=== PATIENT | female | born 1990 | race Caucasian/White ===

== ENCOUNTER 2017-11-20 12:01 | Emergency (ER) | payer SELFPAY ==
--- NOTE | 2017-11-20 13:09 | ER ---
Nurse's Notes [facility] Name: Terry Ruiz Age: 27 yrs Sex: Female : 1990 Arrival Date: 11/20/2017 Time: 12:04 Bed Waiting Private MD: Diagnosis: Presentation: 11/20 12:10 Presenting complaint: Patient states: " I have a tooth infection and I can't get into ph the dentist until December and they won't see me at urgent care." Reports pain in R upper jaw, slight swelling noted, also c/o nausea, denies fever, V/D. Transition of care: patient was not received from another setting of care. Onset of symptoms was November 20, 2017. Initial Sepsis Screen: Does the patient meet any 2 criteria? No. Patient's initial sepsis screen is negative. Does the patient have a suspected source of infection? No. Patient's initial sepsis screen is negative. Care prior to arrival: None. 12:10 Method Of Arrival: Ambulatory ph 12:10 Acuity: IZZY 4 ph [facility]ANQUET SERVER ON CALL: 12:11 LMP N/A - Recent ph Historical: - Allergies: 12:13 PENICILLINS; ph 12:13 Ceclor; ph 12:13 Claritin; ph - PMHx: 12:13 Asthma; ph - PSHx: 12:13 None; ph - Social history:: Smoking status: Patient/guardian denies using tobacco. Vital Signs: 12:11 Pulse 99; Resp 18; Temp 97.9; Pulse Ox 98% on R/A; Weight 104.33 kg; Height 5 ft. 0 in. ph (152.40 cm); Pain 10/10; 12:11 Body Mass Index 44.92 (104.33 kg, 152.40 cm) ph ED Course: 12:04 Patient arrived in ED. as 12:11 Triage completed. ph 12:13 Arm band placed on. ph 13:03 Florinda Gordon FNP-C is PHCP. snw 13:03 Pranav Evans MD is Attending Physician. snw 13:08 Patient's name was called from ER lobby. No response. Unable to locate patient. Will ph disposition as left without being seen by a provider. Administered Medications: No medications were administered Outcome: 13:08 Patient left the ED. ph Signatures: Florinda Gordon FNP-C IMAGING ANALYST-Csnw Perlita Mike as Nichelle Montero, RN RN ph
== END 2017-11-20 13:08 | disposition left against medical advice (07) ==
LOC: ER 12:01
DX: Z53.21 Procedure and treatment not carried out due to patient leaving prior to being seen by health care provider (principal)
CPT/HCPCS: 99281